=== PATIENT | female | born 1980 | race Caucasian/White ===

== ENCOUNTER 2018-05-21 13:37 | Emergency (ER) | payer OTHER ==
[2018-05-21 13:45] VITALS: BP 123/81; PULSE 84; RESP 20; TEMP 98.3
[2018-05-21] MEDS ORDERED: ERYTHROMYCIN 5 MG/GM OPHTH OINT 3.5 GM TUBE RIGHT EYE STA (14:18)
--- NOTE | 2018-05-21 14:26 | XR ---
EXAMINATION TYPE: XR foot complete RT DATE OF EXAM: 05/21/2018 COMPARISON: None HISTORY: Dropped box on foot TECHNIQUE: Three-view right foot FINDINGS: No acute fractures are evident. Soft tissues appear normal. Alignment is normal. Joint spac es are preserved. Follow-up exam can be performed 7-10 days from acute trauma for continued pain. IMPRESSION: 1. No acute osseous abnormality right foot.
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
== END 2018-05-21 15:10 | disposition home or self-care (01) ==
LOC: EC 13:37
DX: H00.013 Hordeolum externum right eye, unspecified eyelid (principal); S90.31XA Contusion of right foot, initial encounter; F17.200 Nicotine dependence, unspecified, uncomplicated; W20.8XXA Other cause of strike by thrown, projected or falling object, initial encounter; Y92.69 Other specified industrial and construction area as the place of occurrence of the external cause; Y99.0 Civilian activity done for income or pay
CPT/HCPCS: 99283

== ENCOUNTER 2019-04-02 12:07 | Emergency (ER) | payer OTHER ==
[2019-04-02 12:12] VITALS: BP 129/82; PULSE 81; RESP 16; TEMP 98.6
--- NOTE | 2019-04-02 12:55 | ED ---
Skin/Abscess/FB HPI - General Chief complaint: Skin/Abscess/Foreign Body Stated complaint: bump/bite on arm Time Seen by Provider: 04/02/19 12:14 Source: patient Mode of arrival: ambulatory Limitations: no limitations - History of Present Illness Initial comments: 8-year-old female presenting for chief complaint of bug bite right forearm. Patient states she had a byproduct a few nights prior. She states that she noticed the redness isn't spreading she was concerned of infection. Patient states it has been spent he is a draining. Patient is here chills night sweats general malaise. Patient denies any flulike symptoms. Patient denies history of MRSA. Remaining review of systems negative upon arrival patient appears well no signs of acute distress. Afebrile. No recent antibiotic use. - Related Data Home Medications Medication Instructions Recorded Confirmed Ibuprofen [Motrin Ib] 400 mg PO Q6H PRN 04/02/19 04/02/19 Previous Rx's Medication Instructions Recorded Cephalexin [Keflex] 500 mg PO Q6HR 7 Days #28 cap 04/02/19 Sulfamethox-Tmp 800-160Mg [Bactrim 1 tab PO Q12HR 7 Days #14 tab 04/02/19 DS 800-160 mg] Allergies Allergy/AdvReac Type Severity Reaction Status Date / Time No Known Allergies Allergy Verified 04/02/19 12:21 Review of Systems ROS Statement: Those systems with pertinent positive or pertinent negative responses have been documented in the HPI. ROS Other: All systems not noted in ROS Statement are negative. Past Medical History Past Medical History: No Reported History History of Any Multi-Drug Resistant Organisms: None Reported Past Surgical History: Section, Tubal Ligation Past Psychological History: No Psychological Hx Reported Smoking Status: Current every day smoker Past Alcohol Use History: None Reported Past Drug Use History: None Reported General Exam - General Exam Comments Initial Comments: General: The patient is awake and alert, in no distress, and does not appear acutely ill. Eye: Pupils are equal, round and reactive to light, extra-ocular movements are intact. No nystagmus. There is normal conjunctiva bilaterally. No signs of icterus. Cardiovascular: There is a regular rate and rhythm. No murmur, rub or gallop is appreciated. Respiratory: Lungs are clear to auscultation, respirations are non-labored, breath sounds are equal. No wheezes, stridor, rales, or rhonchi. Musculoskeletal: Normal ROM, no tenderness. Strength 5/5. Sensation intact. Pulses equal bilaterally 2+. Neurological: A&O x 3. CN II-XII intact, There are no obvious motor or sensory deficits. Coordination appears grossly intact. Speech is normal. Skin: Skin is warm and dry and no rashes. Break in skin with scab, mild surrounding erythema, fluctuance or drainage. Warm to palpation. Psychiatric: Cooperative, appropriate mood & affect, normal judgment. Limitations: no limitations Course Vital Signs 04/02/19 12:09 Temperature 98.6 F Pulse Rate 81 Respiratory 16 Rate Blood Pressure 129/82 O2 Sat by Pulse 98 Oximetry Medical Decision Making - Medical Decision Making 38yo female presents for bug bite. Patient consented infection. There is no evidence of fluctuant abscess. There is scab patient states it has been tasted drain. There is very mild surrounding cellulitis. Patient was started on Bactrim and Keflex. Return parameters were discussed at length patient was understanding. Patient is discharged. While with instruction to follow up outpatient and return parameters as discussed. Disposition Clinical Impression: Cellulitis of right forearm, Insect bite Disposition: HOME SELF-CARE Condition: Good Instructions (If sedation given, give patient instructions): Cellulitis (ED), Insect Bite or Sting (ED) Prescriptions: Sulfamethox-Tmp 800-160Mg [Bactrim DS 800-160 mg] 1 tab PO Q12HR 7 Days #14 tab Cephalexin [Keflex] 500 mg PO Q6HR 7 Days #28 cap Is patient prescribed a controlled substance at d/c from ED?: No Referrals: Abdias Kraft MD [Primary Care Provider] - 1-2 days Time of Disposition: 13:03
== END 2019-04-02 13:10 | disposition home or self-care (01) ==
LOC: EC 12:07
DX: S50.861A Insect bite (nonvenomous) of right forearm, initial encounter (principal); L03.113 Cellulitis of right upper limb; F17.200 Nicotine dependence, unspecified, uncomplicated; W57.XXXA Bitten or stung by nonvenomous insect and other nonvenomous arthropods, initial encounter
CPT/HCPCS: 99282

== ENCOUNTER 2019-04-28 16:46 | Emergency (ER) | payer OTHER ==
[2019-04-28 17:40] VITALS: BP 161/95; PULSE 62; RESP 18; TEMP 98.2
--- NOTE | 2019-04-28 18:32 | ED ---
General Adult HPI - General Chief complaint: Extremity Injury, Upper Stated complaint: shoulder pain Time Seen by Provider: 04/28/19 17:55 Source: patient, RN notes reviewed Mode of arrival: ambulatory Limitations: no limitations - History of Present Illness Initial comments: 39-year-old female without any significant past medical history presents to the emergency department for a chief complaint of work note. Patient states that she has chronic right shoulder pain from a previous rotator cuff tear. 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 States that she called into work today because of the pain and needs a note for work. States urine as well as her shoulder does not want any imaging or treatment done. States she only needs a work note.Patient has no other complaints at this time including shortness of breath, chest pain, abdominal pain, nausea or vomiting, headache, or visual changes. - Related Data Home Medications Medication Instructions Recorded Confirmed No Known Home Medications 04/28/19 04/28/19 Allergies Allergy/AdvReac Type Severity Reaction Status Date / Time No Known Allergies Allergy Verified 04/28/19 18:11 Review of Systems ROS Statement: Those systems with pertinent positive or pertinent negative responses have been documented in the HPI. ROS Other: All systems not noted in ROS Statement are negative. Past Medical History Past Medical History: No Reported History History of Any Multi-Drug Resistant Organisms: None Reported Past Surgical History: Section, Tubal Ligation Past Psychological History: No Psychological Hx Reported Smoking Status: Current every day smoker Past Alcohol Use History: None Reported Past Drug Use History: None Reported General Exam Limitations: no limitations General appearance: alert, in no apparent distress Head exam: Present: atraumatic, normocephalic, normal inspection Eye exam: Present: normal appearance, PERRL, EOMI. Absent: scleral icterus, conjunctival injection, periorbital swelling ENT exam: Present: normal exam, mucous membranes moist Neck exam: Present: normal inspection, full ROM. Absent: tenderness, meningismus, lymphadenopathy Respiratory exam: Present: normal lung sounds bilaterally. Absent: respiratory distress, wheezes, rales, rhonchi, stridor Cardiovascular Exam: Present: regular rate, normal rhythm, normal heart sounds. Absent: systolic murmur, diastolic murmur, rubs, gallop, clicks Extremities exam: Present: normal inspection, full ROM (Full range of motion of the right shoulder including full flexion and abduction and extension.), normal capillary refill (Capillary refill less than 2 seconds, radial pulse 2+.). Absent: tenderness (No tenderness of the right shoulder.), pedal edema, joint swelling (No edema or ecchymosis.), calf tenderness Course Vital Signs 04/28/19 17:38 Temperature 98.2 F Pulse Rate 62 Respiratory 18 Rate Blood Pressure 161/95 O2 Sat by Pulse 100 Oximetry Medical Decision Making - Medical Decision Making 39-year-old female presents for right shoulder pain. Patient has chronic right shoulder pain from an old rotator cuff tear injury. States that she aggravated it a couple days ago and today she called into work because of the pain and she did not want to exacerbate it by working. Denies fevers or chills. On exam patient is anxious to leave. States she just needs a work note. She has an unremarkable exam. Patient refuses x-ray despite my recommendation to obtain this. At this time patient requesting discharge. Patient will be discharged with a work note however she was given orthopedic referral to follow up with. She'll return if she has any worsening symptoms. Disposition Clinical Impression: Chronic shoulder pain Disposition: HOME SELF-CARE Condition: Good Instructions (If sedation given, give patient instructions): Shoulder Pain (ED) Additional Instructions: Please follow up with primary care and orthopedics in one to 2 days. Take Motrin and Tylenol for pain. Return here to the emergency department if you have any worsening symptoms. Is patient prescribed a controlled substance at d/c from ED?: No Referrals: Abdias Kraft MD [Primary Care Provider] - 1-2 days Al Woo MD [STAFF PHYSICIAN] - 1-2 days Time of Disposition: 18:31
== END 2019-04-28 18:32 | disposition home or self-care (01) ==
LOC: EC 16:46
DX: Z02.79 Encounter for issue of other medical certificate (principal); G89.29 Other chronic pain; M25.511 Pain in right shoulder; F17.200 Nicotine dependence, unspecified, uncomplicated; Z53.29 Procedure and treatment not carried out because of patient's decision for other reasons
CPT/HCPCS: 99283

== ENCOUNTER 2019-07-28 14:45 | Emergency (ER) | payer OTHER ==
[2019-07-28 14:49] VITALS: BP 124/84; PULSE 70; RESP 20; TEMP 99
[2019-07-28] MEDS ORDERED: DIPH,PERTUS(ACELL)TETVAC-LF 0.5 ML VIAL IM ONE (15:00)
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
[2019-07-28] MEDS ORDERED: CEPHALEXIN 500MG STARTER PACK 4 CAP BTL PO STA (15:36)
== END 2019-07-28 15:44 | disposition home or self-care (01) ==
LOC: EC 14:45
DX: S05.12XA Contusion of eyeball and orbital tissues, left eye, initial encounter (principal); S60.512A Abrasion of left hand, initial encounter; S60.511A Abrasion of right hand, initial encounter; F17.200 Nicotine dependence, unspecified, uncomplicated; Y04.0XXA Assault by unarmed brawl or fight, initial encounter; Y92.009 Unspecified place in unspecified non-institutional (private) residence as the place of occurrence of the external cause
CPT/HCPCS: 70450; 70486; 72125; 99284

== ENCOUNTER → 2020-04-05 | Outpatient (CLI) | payer OTHER ==
--- NOTE | 2020-04-06 06:56 | MR ---
EXAMINATION TYPE: MR shoulder LT wo con DATE OF EXAM: 04/05/2020 COMPARISON: Left shoulder x-ray March 09, 2020. HISTORY: Pain and loss of range of motion in Left shoulder. Post fall onto left side. TECHNIQUE: Multiplanar, multisequence imaging of the left shoulder is performed without contrast. FINDINGS: Rotator Cuff: Some increased signal distal aspect of the supraspinatus tendon near the humeral head a ttachment with some fraying of fibers. Infraspinatus tendon intact. Subscapularis tendon intact. With in the muscle bulk of the supraspinatus tendon along posterior aspect there is a well-defined ovoid s lightly lobulated lesion of T1 hypointensity and T2 hyperintensity measuring 3.3 x 0.8 cm coronal edgardo ge 14 x 0.9 cm AP diameter sagittal image 17 suspicious for small intramuscular hematoma given histor y of recent trauma. Rotator cuff muscle bulk is preserved. Acromioclavicular Joint: Some fluid at acromioclavicular joint with slight widening. No craniocaudal separation. No significant spurring. Underlying fat plane maintained. Distal acromion morphology unre markable. Glenohumeral Joint: No significant joint effusion or spurring. Labrum: The labrum appears grossly intact given limitation of non-arthrogram study. Biceps Tendon: The long head of biceps is in normal location within bicipital groove. Bone marrow signal: 4 mm T2 hyperintense lesion in the humeral head axial image 12 favors subchondral cyst. Other: No additional significant abnormality is appreciated. IMPRESSION: As above. Tendinosis/partial tearing of the distal supraspinatus tendon. Intramuscular le soheila short of mild tendinous junction suspicious for small hematoma. Consider short-term MRI follow-u p in 2-3 months time to document improvement and/or resolution to exclude other etiologies.
== END | disposition home or self-care (01) ==
LOC: RADMRIMAIN 10:05
PROVIDERS: ATTEND Orthopaedic Surgery
DX: M75.122 Complete rotator cuff tear or rupture of left shoulder, not specified as traumatic (principal)

== ENCOUNTER → 2020-04-30 | Outpatient (CLI) | payer OTHER ==
[2020-04-30 20:16] LABS: Ferritin 37.3 ng/mL (10.0-291.0)
[2020-04-30 20:20] LABS: % Iron Saturation 67.58 (12.00-45.00); ALT 12 U/L (8-44); AST 15 U/L (13-35); African American GFR (CKD) 108.4 (60.0-200.0); Albumin/Globulin Ratio 1.83 (1.60-3.17); Alkaline Phosphatase 55 U/L (41-126); C Reactive Protein <0.4 mg/dL (0.0-0.8); Calcium 9.3 mg/dL (8.7-10.3); Carbon Dioxide 24.8 mmol/L (21.6-31.8); Chloride 111 mmol/L (96-109); Globulin 2.3 g/dL (1.6-3.3); Glucose 97 mg/dL (70-110); Iron 198 ug/dL (50-170); Non-African American GFR(CKD) 93.5 (60.0-200.0); Potassium 4.2 mmol/L (3.5-5.5); Sodium 140 mmol/L (135-145); Total Bilirubin 0.6 mg/dL (0.3-1.2); Total Iron Binding Capacity 293 ug/dL (228-460); Total Protein 6.5 g/dL (6.2-8.2)
[2020-04-30 20:34] LABS: Hemoglobin A1C 5.3 % (4.0-6.0)
== END | disposition home or self-care (01) ==
LOC: LABWHC1 13:40
PROVIDERS: ATTEND Nurse Practitioner Family
DX: M25.511 Pain in right shoulder (principal); L65.9 Nonscarring hair loss, unspecified; N39.3 Stress incontinence (female) (male)
CPT/HCPCS: 36415; 80053; 82728; 83036; 83540; 83550; 84443; 85652; 86038; 86140

== ENCOUNTER → 2020-04-30 | Outpatient (CLI) | payer OTHER ==
[2020-04-30 14:21] LABS: Basophils % (A) 0 %; Eosinophils # (A) 0.1 k/uL (0-0.7); Eosinophils % (A) 1 %; HCT 43.8 % (34.0-46.0); HGB 14.1 gm/dL (11.4-16.0); Lymphocytes # (A) 2.6 k/uL (1.0-4.8); Lymphocytes % (A) 28 %; MCH 32.6 pg (25.0-35.0); MCHC 32.3 g/dL (31.0-37.0); MCV 101.1 fL (80.0-100.0); Mean Platelet Volume 8.1; Monocytes # (A) 0.6 k/uL (0-1.0); Monocytes % (A) 7 %; Neutrophils # (A) 5.8 k/uL (1.3-7.7); Neutrophils % (A) 62 %; Platelet Count 209 k/uL (150-450); RBC 4.33 m/uL (3.80-5.40); RDW 12.6 % (11.5-15.5); WBC 9.3 k/uL (3.8-10.6)
== END | disposition home or self-care (01) ==
LOC: LABPAT 13:35
PROVIDERS: ATTEND Orthopaedic Surgery
DX: Z01.818 Encounter for other preprocedural examination (principal); M75.42 Impingement syndrome of left shoulder
CPT/HCPCS: 85025

== ENCOUNTER 2020-05-05 06:27 | Day surgery (SDC) | payer OTHER ==
[2020-04-29 09:18] VITALS: BMI 25.3
--- NOTE | 2020-05-04 18:32 | HP ---
HISTORY AND PHYSICAL DATE OF SURGERY: 05/05/2020 Leonor Piedra is a 40-year-old patient seen with progressive left shoulder pain. We discussed options for treatment. She elected to proceed with arthroscopy. Consent was obtained. PAST MEDICAL HISTORY: Noncontributory. PAST SURGICAL HISTORY: section. DAILY MEDICATIONS: Ibuprofen, gabapentin. ALLERGIES: NONE. SOCIAL HISTORY: She smokes one pack of cigarettes daily. PHYSICAL EVALUATION OF THE LEFT SHOULDER: Flexion is 150 degrees. Abduction is 130 degrees. External rotation is 50 degrees with pain and weakness. Tenderness along the anterolateral acromion and rotator cuff insertion site. Impingement sign is positive at 90 degrees. Drop-arm sign is positive. Distal neurovascular exam is intact. RADIOGRAPHS: Radiographs of the left shoulder revealed a type 2 anterior acromion, cystic changes of the tuberosity. Left shoulder MRI revealed a partial rotator cuff tendon tear. IMPRESSION: 1. Left shoulder impingement with rotator cuff tear. 2. Tobacco use. PLAN: Left shoulder arthroscopy with subacromial decompression, arthroscopic rotator cuff repair, possible Prasad procedure and debridement. MMODL / IJN: [id number] /
[~2020-05-05 06:27] MED LIST: HYDROmorphone 0.5 MG/0.5 ML SYRINGE IVP PRN
[2020-05-05] MEDS ORDERED: ONDANSETRON 4 MG/2 ML VIAL ONE (06:58)
[2020-05-05] MEDS: LACTATED RINGERS 1,000 ML IV SCH ×2 (07:04→07:53)
[2020-05-05] MEDS ORDERED: DEXAMETHASONE SOD PHOSPHATE 10 MG/ML 1 ML VIAL IV ONE (07:05)
[2020-05-05] MEDS ORDERED: MIDAZOLAM 2 MG/2 ML VIAL IV ONE (07:15)
[2020-05-05] MEDS ORDERED: ROCURONIUM BROMIDE 10 MG/ML 5 ML VIAL IV ONE (07:56)
[2020-05-05] MEDS ORDERED: MIDAZOLAM 2 MG/2 ML VIAL ONE (07:56)
[2020-05-05] MEDS ORDERED: ROPIVACAINE 5 MG/ML 30 ML VIAL ONE (07:56)
[2020-05-05] MEDS ORDERED: LIDOCAINE 1% INJ 10MG/ML (20 ML MDV) ONE (07:56)
[2020-05-05] MEDS ORDERED: fentaNYL (PF) 50 MCG/ML 2 ML AMP ONE (07:56)
[2020-05-05] MEDS ORDERED: SUCCINYLCHOLINE CHLORIDE 100 MG/5 ML SYR IV ONE (07:56)
[2020-05-05] MEDS ORDERED: DEXAMETHASONE SOD PHOSPHATE 4 MG/ML 1 ML VIAL ONE (07:56)
[2020-05-05] MEDS ORDERED: PROPOFOL 10 MG/ML 20 ML VIAL IV ONE (07:56)
--- NOTE | 2020-05-05 08:23 | P.ANPRN ---
Procedure Note - Anesthesia - Nerve Block Performed Left Interscalene Time Out Performed: Yes (:14) Date of Procedure: 05/05/20 Procedure Start Time: Procedure Stop Time: Location of Patient: PreOp Indication: Acute Post-Operative Pain, Requested by Surgeon (Dr Gambino) Sedation Type: Sedate with meaningful contact maintained Preparation: Sterile Prep Position: Supine Catheter: None Needle Types: Pajunk (22g) Ultrasound used to visualize needle placement: Yes Ultrasound used to observe medication spread: Yes Injectate: 0.5% Ropivacaine (see comment for volume) (20cc + Decadron 4mg) Blood Aspirated: No Pain Paresthesia on Injection Noted: No Resistance on Injection: Normal Image Stored and Saved: Yes Events: Uneventful and Well Tolerated
[2020-05-05] MEDS ORDERED: HYDROmorphone 1 MG/ML 1 ML SYRINGE IVP ONE ×5 (09:18→10:14)
[2020-05-05] MEDS ORDERED: MIDAZOLAM 2 MG/2 ML VIAL IVP ONE ×2 (09:25→09:30)
[2020-05-05 09:28] VITALS: TEMP 97.3
[2020-05-05] MEDS ORDERED: ONDANSETRON 4 MG/2 ML VIAL IVP ONE (09:30)
--- NOTE | 2020-05-05 09:37 | P.OP ---
Date of Procedure: 05/05/20 Preoperative Diagnosis: Left shoulder impingement Postoperative Diagnosis: 1. Left shoulder rotator cuff tear 2. Left shoulder impingement Procedure(s) Performed: 1. Left shoulder arthroscopic rotator cuff repair 2. Left shoulder arthroscopic subacromial decompression Implants: 15.5 Arthrex swivel lock anchor Anesthesia: GETA, regional (Interscalene block) Surgeon: Jakub Gambino Provider Relations Consultant #1: Milton Harman Estimated Blood Loss (ml): 7 Pathology: none sent Condition: stable Disposition: PACU Indications for Procedure: 40-year-old patient seen with progressive left shoulder pain. After having treatment options discussed, she elected to proceed with arthroscopy. Operative Findings: See description of procedure Description of Procedure: Patient underwent an interscalene block by department of anesthesia. The patient was then taken to the operative suite. The patient underwent a general anesthetic by the department of anesthesia. The patient was placed into a lateral position and secured. There was appropriate padding of the bony prominence. Left shoulder was then prepped and draped in normal sterile orthopedic fashion. We placed the extremity in 10 pounds of longitudinal traction. A posterior incision was now made for a posterior working portal site. The trocar and cannula were inserted into the glenohumeral joint. Arthroscopy was initiated. Spinal needle was now inserted anteriorly, to ascertain the anterior working portal site. An incision was now made in that area, a trocar was inserted followed by a probe. The labrum was probed and found to be stable. There was an area of grade 1 chondromalacia central portion humeral head with no osteochondral tears present. The biceps tendon was stable. At this point instruments removed from glenohumeral joint. Utilizing the posterior working portal site, the trocar and cannula were inserted into the subacromial space. Arthroscopy initiated. I made an incision 2 fingerbreadths lateral to the acromion. I introduced my trocar followed by my ArthroCare ablator. I now began ablating thick subacromial bursal tissue, which exposed the undersurface of the anterior acromion. There was diminished subacromial space. There was a very prominent anterior acromion. A motorized bur was introduced and a subacromial decompression was performed. I also excised some osteophytes off the inferior aspect of the distal clavicle. The AC joint was visualized and noted to be stable with no significant arthritis. I now turned my attention to the rotator cuff tendon. There was obvious full-t hickness perforation along the central portion distal supraspinatus. I debrided the margins getting down to stable tendon tissue. I abraded the footprint with a motorized bur. With the assistance of Edmundo LORENZO I passed 3 everted mattress sutures through good bites of rotator cuff tendon. I now punched a hole in the area of our footprint for insertion of an anchor. All 6 limbs of suture were now passed and the eyelet of a 5.5 Arthrex swivel lock anchor. I now placed the eyelet in the pre-punch hole and held in position while Edmundo LORENZO tension the sutures and deployed the anchor. We had good fixation. All residual suture limbs were now clipped. We had good compression of the tendon along the entire footprint. I injected 1 mL Renyte intra-articular. Instruments now removed from the portal sites. All portal sites were approximated with nylon suture. Sterile dressings were applied followed by a shoulder sling. Milton LORENZO assisted in this complex case. The patient was awakened, transferred to a bed, and taken to recovery in stable condition.
[2020-05-05] MEDS ORDERED: fentaNYL (PF) 50 MCG/ML 2 ML AMP IVP ONE ×2 (09:38→09:41)
[2020-05-05 11:29] VITALS: BP 133/92; PULSE 68; RESP 18
== END 2020-05-05 11:33 | disposition home or self-care (01) ==
LOC: OR 06:27
PROVIDERS: ATTEND Orthopaedic Surgery
DX: M75.122 Complete rotator cuff tear or rupture of left shoulder, not specified as traumatic (principal); M25.812 Other specified joint disorders, left shoulder; M94.212 Chondromalacia, left shoulder; M25.712 Osteophyte, left shoulder; F17.210 Nicotine dependence, cigarettes, uncomplicated; Z98.890 Other specified postprocedural states; Z79.1 Long term (current) use of non-steroidal anti-inflammatories (NSAID); Z79.899 Other long term (current) drug therapy
CPT/HCPCS: 64415; 81025; 76942; 29827; 29826; C1713; Q4212; J2250; J1100 ×2; J2405; J0690; J2001; J3010; J1170; J2795; J0330; J2704

== ENCOUNTER 2020-06-27 02:46 | Emergency (ER) | payer OTHER ==
--- NOTE | 2020-06-27 02:55 | ED ---
Psych HPI - General Chief Complaint: Psychiatric Symptoms Stated Complaint: Mental health Time Seen by Provider: 06/27/20 02:55 Source: patient, police Mode of arrival: ambulatory - History of Present Illness Initial Comments: Leonor is a 40-year-old female with no psychiatric history is brought to the ER today in police custody for making suicidal statements. Upon arrival the patient is very tearful and apologetic. She states that she got in a verbal altercation with her girlfriend and became very agitated. She made multiple superficial lacerations to her left forearm, none were deep, none over any vascular structures. She states she did it to upset her girlfriend who was ignoring her. Patient states that she has been evaluated by psychiatry in the past she's been in counseling in the past that she was previously incarcerated. She's never been on any psychiatric medications she's never been an inpatient psychiatric facility. She denies any suicidal thoughts or plans. Denies being homicidal thoughts or plans. Does not know when her tetanus was last updated. Is not on any anticoagulant or antiplatelet medications. - Related Data Home Medications Medication Instructions Recorded Confirmed Bladder Medicine(Unknown Name) 1 tab PO DAILY 04/29/20 05/05/20 Gabapentin 800 mg PO TID 04/29/20 05/05/20 Ibuprofen [Motrin] 800 mg PO Q4-6H PRN 04/29/20 05/05/20 Vitamin D 1 tab PO Q30D 04/29/20 05/05/20 Previous Rx's Medication Instructions Recorded HYDROcodone/APAP 7.5-325MG [[place] 1 each PO Q6HR PRN #28 tab 05/05/20 7.5] Allergies Allergy/AdvReac Type Severity Reaction Status Date / Time No Known Allergies Allergy Verified 06/27/20 02:54 Review of Systems ROS Statement: Those systems with pertinent positive or pertinent negative responses have been documented in the HPI. ROS Other: All systems not noted in ROS Statement are negative. Past Medical History Past Medical History: Osteoarthritis (OA) History of Any Multi-Drug Resistant Organisms: MRSA Date of last positivie culture/infection: 2018 MDRO Source:: arm Past Surgical History: Section, Orthopedic Surgery, Tubal Ligation Additional Past Surgical History / Comment(s): left shoulder Past Anesthesia/Blood Transfusion Reactions: No Reported Reaction Past Psychological History: Anxiety Smoking Status: Current every day smoker Past Alcohol Use History: None Reported Past Drug Use History: Marijuana - Past Family History Mother Family Medical History: No Reported History General Exam - General Exam Comments Initial Comments: Physical Exam GENERAL: Patient is well-developed and well-nourished. Crying and upset HENT: Normocephalic, Atraumatic. EYES: PERRL, EOMI PULMONARY: Unlabored respirations. CARDIOVASCULAR: RRR Warm and well perfused extremities ABDOMEN: Non-distended SKIN: Multiple linear superficial lacerations to the left anterior forearm, consistent with self-inflicted injury, significant contusion around the superficial lacerations as noted indicating the instrument used was quite dull and required significant pressure 1 laceration measuring 3 cm is through the dermis with visible underlying subcutaneous fat. No tendon or vascular involvement : Deferred NEUROLOGIC: Alert and oriented Normal speech Normal gait MUSCULOSKELETAL: Moving all extremities with no apparent injury PSYCHIATRIC: Upset, apologetic denies suicidal or homicidal ideation Limitations: no limitations Course Vital Signs 06/27/20 02:47 Temperature 99.1 F Pulse Rate 106 H Respiratory 20 Rate Blood Pressure 167/119 O2 Sat by Pulse 97 Oximetry Procedures - Laceration Laceration #1 Consent Obtained: verbal consent Indication: laceration Site: upper extremity Size (cm): 3 Description: linear Depth: simple, single layer Pre-repair: wound explored, irrigated extensively Type of Sutures: other (skin glue) Patient Tolerated Procedure: well, no complications Medical Decision Making - Medical Decision Making The patient was seen and evaluated, history is obtained from the patient and police Patient was very upset made multiple superficial lacerations to the left anterior forearm, none over the distal wrist none are deep not involve any vascular injury Patient is very apologetic she admits that this was an attention seeking behavior, denies any suicidal plan or ideation no history of suicidal attempts, no significant psychiatric history Patient is medically cleared for evaluation by psychiatry Patient was evaluated by emergency psychiatric services nurse who agrees at this time the patient is stable for discharge home this was an acute stress reaction. Patient is able to contract to safety. Laceration was repaired with skin glue and Steri-Strips. Patient tolerated this well. Patient was discharged home in stable condition. We did offer to pay for a cab ride home for the patient she states that it's only about 5 minute walk and she would like to stop at a liquor store to buy cigarettes or she would prefer to be discharged to walk home. Disposition Clinical Impression: Adjustment reaction of adult life Disposition: HOME SELF-CARE Condition: Stable Additional Instructions: Keep her skin clean and dry, you can days and wash her hands but don't take any baths or go swimming. The glue will follow off in time. You will have a scar Stick to your safety plan You were provided with resources for follow-up for counseling and psychiatric care, I recommend you contact these on Sunday for therapy. If you have any thoughts of hurting herself or others call 911 or return to the emergency department immediately Is patient prescribed a controlled substance at d/c from ED?: No Referrals: Halle Cancino MD [Primary Care Provider] - 1-2 days
[2020-06-27] MEDS ORDERED: DIPH,PERTUS(ACELL)TETVAC-LF 0.5 ML VIAL IM ONE (03:10)
[2020-06-27] MEDS ORDERED: TOPICAL SKIN ADHESIVE 1 EACH AMP TOPICAL ONE (03:10)
[2020-06-27] MEDS ORDERED: NICOTINE 21MG/24HR PATCH TRANSDERM STA (03:24)
[2020-06-27] MEDS ORDERED: IBUPROFEN 600 MG STARTER PACK 4 TAB BTL PO STA (05:10)
[2020-06-27 05:18] VITALS: BP 112/70; PULSE 81; RESP 18; TEMP 98.7
== END 2020-06-27 05:18 | disposition home or self-care (01) ==
LOC: EC 02:46
DX: F43.20 Adjustment disorder, unspecified (principal); S51.812A Laceration without foreign body of left forearm, initial encounter; M19.90 Unspecified osteoarthritis, unspecified site; F17.200 Nicotine dependence, unspecified, uncomplicated; Z23 Encounter for immunization; Z86.14 Personal history of Methicillin resistant Staphylococcus aureus infection; X83.8XXA Intentional self-harm by other specified means, initial encounter
CPT/HCPCS: 82075; 90715; 99285; 90471; 12002; S4990

== ENCOUNTER 2021-07-21 17:32 | Emergency (ER) | payer OTHER ==
[2021-07-21 18:03] VITALS: RESP 18
[2021-07-21] MEDS ORDERED: KETOROLAC 15 MG/ML 1 ML VIAL IM STA (20:05)
[2021-07-21] MEDS ORDERED: MORPHINE SULFATE 4 MG/ML SYRINGE IM STA (20:05)
--- NOTE | 2021-07-21 20:26 | ED ---
General Adult HPI - General Chief complaint: Extremity Injury, Upper Stated complaint: [facility] Shoulder injury Time Seen by Provider: 07/21/21 20:00 Source: patient Mode of arrival: ambulatory Limitations: no limitations - History of Present Illness Initial comments: 41 year-old female patient presents for evaluation of left shoulder pain and left low back pain that started while moving a metal shelf at work. States that the shelf was quite heavy, she pulled it with her left arm, and felt a pop and pain in her left shoulder. Reports tingling as well to the left arm. States that she feels a popping in her shoulder whenever she moves it. Does have history of rotator cuff repair on the left. She states she also felt onset of pain to the left low back with radiation of pain down the back of the left thigh. States the left thigh is tingly. Denies loss of bowel or bladder control. Denies saddle anesthesia. Has not taken anything for pain. Denies chance of . - Related Data Home Medications Medication Instructions Recorded Confirmed Bladder Medicine(Unknown Name) 1 tab PO DAILY 04/29/20 05/05/20 Gabapentin 800 mg PO TID 04/29/20 05/05/20 Ibuprofen [Motrin] 800 mg PO Q4-6H PRN 04/29/20 05/05/20 Vitamin D 1 tab PO Q30D 04/29/20 05/05/20 Previous Rx's Medication Instructions Recorded HYDROcodone/APAP 7.5-325MG [[place] 1 each PO Q6HR PRN #28 tab 05/05/20 7.5] Ibuprofen [Motrin] 600 mg PO Q8HR PRN #30 tab 07/21/21 Allergies Allergy/AdvReac Type Severity Reaction Status Date / Time No Known Allergies Allergy Verified 07/21/21 18:03 Review of Systems ROS Statement: Those systems with pertinent positive or pertinent negative responses have been documented in the HPI. ROS Other: All systems not noted in ROS Statement are negative. Past Medical History Past Medical History: Osteoarthritis (OA) History of Any Multi-Drug Resistant Organisms: MRSA Date of last positivie culture/infection: 2019 MDRO Source:: arm Past Surgical History: Section, Orthopedic Surgery, Tubal Ligation Additional Past Surgical History / Comment(s): left shoulder Past Anesthesia/Blood Transfusion Reactions: No Reported Reaction Past Psychological History: Anxiety Smoking Status: Current every day smoker Past Alcohol Use History: None Reported Past Drug Use History: Marijuana - Past Family History Mother Family Medical History: No Reported History General Exam Limitations: no limitations General appearance: alert, in no apparent distress, other (This is a well- developed, well-nourished adult female patient in mild distress related to pain.) Respiratory exam: Present: normal lung sounds bilaterally. Absent: respiratory distress, wheezes, rales, rhonchi, stridor Cardiovascular Exam: Present: regular rate, normal rhythm, normal heart sounds. Absent: systolic murmur, diastolic murmur, rubs, gallop, clicks GI/Abdominal exam: Present: soft, normal bowel sounds. Absent: distended, tenderness, guarding, rebound, rigid Extremities exam: Present: normal inspection, full ROM, tenderness (Left shoulder over the AC joint. ), normal capillary refill, other (Skin to the left arm and left leg is pink, warm, dry. Cap refill less than 3 seconds. Radial pulses 2+. Pedal and posttibial pulses 2+.). Absent: pedal edema, joint swelling, calf tenderness Neurological exam: Present: alert, oriented X3, CN II-XII intact Psychiatric exam: Present: normal affect, normal mood Skin exam: Present: warm, dry, intact, normal color. Absent: rash Course Vital Signs 07/21/21 07/21/21 18:01 22:01 Temperature 99.0 F 98.7 F Pulse Rate 114 H 87 Respiratory 18 18 Rate Blood Pressure 136/88 145/78 O2 Sat by Pulse 96 98 Oximetry Medical Decision Making - Medical Decision Making 41-year-old female patient presented to the emergency department today for evaluation of left shoulder pain and left lower back pain after moving a shelf at work. Physical examination did reveal tenderness over the left shoulder. Neurovascular status was intact. X-rays were obtained and did show , no clavicular joint widening. We did discuss possibility of an acromioclavicular joint separation. She will be discharged with a sling with strict instructions to perform gentle range of motion. She is instructed to follow-up with orthopedics for further evaluation as soon as possible. Return parameters were discussed in detail. She verbalizes understanding and agrees with this plan. My attending is Dr. Rowell. - Radiology Data Radiology results: report reviewed, image reviewed 3 views of left shoulder obtained. Report was reviewed in its entirety. Impression by Dr. Danya Carrillo shows no acute process other his before meals joint widening measuring 1.2 cm transverse. 5 views of lumbosacral spine are obtained. Report was reviewed in its entirety. Impression by Dr. Danya Carrillo shows no acute process. Disposition Clinical Impression: Separation of left acromioclavicular joint Disposition: HOME SELF-CARE Condition: Good Instructions (If sedation given, give patient instructions): Acromioclavicular Separation (ED) Additional Instructions: Wear the sling for comfort. Perform gentle range of motion exercises to the left shoulder several times per day to prevent frozen shoulder. Follow-up with telecommunications specialist for further evaluation as soon as possible. Return for any new, worsening, or concerning symptoms. Prescriptions: Ibuprofen [Motrin] 600 mg PO Q8HR PRN #30 tab PRN Reason: Pain Is patient prescribed a controlled substance at d/c from ED?: No Referrals: Halle Cancino MD [Primary Care Provider] - 1-2 days Time of Disposition: 21:40
--- NOTE | 2021-07-21 21:21 | XR ---
PROCEDURE: XR shoulder complete LT - 3V DATE AND TIME: 07/21/2021 8:59 PM CLINICAL INDICATION: PHH; Pain/injury TECHNIQUE: Department protocol COMPARISON: None FINDINGS: There is no fracture or malalignment. There is AC joint widening, measuring 1.2 cm transver se, noted. The soft tissues are unremarkable. IMPRESSION: No acute process.
--- NOTE | 2021-07-21 21:23 | XR ---
PROCEDURE: XR LUMBOSACRAL SPINE 5 VIEWS DATE AND TIME: 07/21/2021 8:59 PM CLINICAL INDICATION: PHH; Pain/injury TECHNIQUE: Department protocol COMPARISON: None FINDINGS: There is no fracture or malalignment. The soft tissues are unremarkable. IMPRESSION: NO ACUTE PROCESS.
[2021-07-21] MEDS ORDERED: ACET/COD 300 MG/30 MG STARTER PACK 6 TAB BTL PO STA (21:40)
[2021-07-21 22:04] VITALS: BP 145/78; PULSE 87; TEMP 98.7
== END 2021-07-21 22:04 | disposition home or self-care (01) ==
LOC: EC 17:32
DX: S43.102A Unspecified dislocation of left acromioclavicular joint, initial encounter (principal); M19.90 Unspecified osteoarthritis, unspecified site; M54.50 Low back pain, unspecified; F17.200 Nicotine dependence, unspecified, uncomplicated; F12.90 Cannabis use, unspecified, uncomplicated; Z79.1 Long term (current) use of non-steroidal anti-inflammatories (NSAID); Z79.899 Other long term (current) drug therapy; X50.1XXA Overexertion from prolonged static or awkward postures, initial encounter
CPT/HCPCS: 96372 ×3; 99283 ×2; 72110; 73030; J2270; J1885

== ENCOUNTER 2021-07-26 19:59 | Emergency (ER) | payer OTHER ==
[2021-07-26] MEDS ORDERED: HYDROmorphone 1 MG/ML 1 ML SYRINGE IM STA (22:13)
[2021-07-26] MEDS ORDERED: traMADol 50 MG STARTER PACK 3 TAB BTL PO STA (22:14)
--- NOTE | 2021-07-26 22:18 | ED ---
Recheck HPI - General Chief Complaint: Extremity Injury, Upper Stated Complaint: LT Arm pain Time Seen by Provider: 07/26/21 21:56 Source: patient, RN notes reviewed, old records reviewed Mode of arrival: ambulatory Limitations: no limitations - History of Present Illness Initial Comments: This is a 41-year-old female to the ER today for evaluation. She presents today for evaluation in regards to persistent left shoulder pain after a fall with an before meals separation per the patient. She states she cannot go back to work on the work is required to come back. Patient states pain is not controlled. No other complaints MD Complaint: medication refill request -: days(s) Returns Today for: persistent/worsening pain related to initial visit Symptoms Since Prior Visit: worsening pain Context: ran out of medication Treatments Prior to Arrival: Given Pain Meds on - Related Data Home Medications Medication Instructions Recorded Confirmed Bladder Medicine(Unknown Name) 1 tab PO DAILY 04/29/20 05/05/20 Gabapentin 800 mg PO TID 04/29/20 05/05/20 Ibuprofen [Motrin] 800 mg PO Q4-6H PRN 04/29/20 05/05/20 Vitamin D 1 tab PO Q30D 04/29/20 05/05/20 Previous Rx's Medication Instructions Recorded HYDROcodone/APAP 7.5-325MG [[place] 1 each PO Q6HR PRN #28 tab 05/05/20 7.5] Ibuprofen [Motrin] 600 mg PO Q8HR PRN #30 tab 07/21/21 Ketorolac [Toradol] 10 mg PO Q6HR #20 tab 07/26/21 Allergies Allergy/AdvReac Type Severity Reaction Status Date / Time No Known Allergies Allergy Verified 07/21/21 18:03 Review of Systems ROS Statement: Those systems with pertinent positive or pertinent negative responses have been documented in the HPI. ROS Other: All systems not noted in ROS Statement are negative. Past Medical History Past Medical History: Osteoarthritis (OA) History of Any Multi-Drug Resistant Organisms: MRSA Date of last positivie culture/infection: 2019 MDRO Source:: arm Past Surgical History: Section, Orthopedic Surgery, Tubal Ligation Additional Past Surgical History / Comment(s): left shoulder Past Anesthesia/Blood Transfusion Reactions: No Reported Reaction Past Psychological History: Anxiety Smoking Status: Current every day smoker Past Alcohol Use History: None Reported Past Drug Use History: Marijuana - Past Family History Mother Family Medical History: No Reported History General Exam Limitations: no limitations General appearance: alert, in no apparent distress Head exam: Present: atraumatic, normocephalic, normal inspection Eye exam: Present: normal appearance, PERRL, EOMI. Absent: scleral icterus, conjunctival injection, periorbital swelling ENT exam: Present: normal exam, mucous membranes moist Neck exam: Present: normal inspection. Absent: tenderness, meningismus, lymphadenopathy Respiratory exam: Present: normal lung sounds bilaterally. Absent: respiratory distress, wheezes, rales, rhonchi, stridor Cardiovascular Exam: Present: regular rate, normal rhythm, normal heart sounds. Absent: systolic murmur, diastolic murmur, rubs, gallop, clicks GI/Abdominal exam: Present: soft, normal bowel sounds. Absent: distended, tenderness, guarding, rebound, rigid Extremities exam: Present: normal inspection, full ROM, normal capillary refill. Absent: tenderness, pedal edema, joint swelling, calf tenderness Back exam: Present: normal inspection Neurological exam: Present: alert, oriented X3, CN II-XII intact Psychiatric exam: Present: normal affect, normal mood Skin exam: Present: warm, dry, intact, normal color. Absent: rash Course Vital Signs 07/26/21 07/26/21 20:15 22:49 Temperature 97.7 F 97.9 F Pulse Rate 74 60 Respiratory 19 18 Rate Blood Pressure 140/94 138/89 O2 Sat by Pulse 99 98 Oximetry - Reevaluation(s) Reevaluation #1: Medical record is reviewed Symptoms are improved here in the emergency department Patient is informed of results and questions answered Medical Decision Making - Medical Decision Making 41 female for recheck of left shoulder pain with left before meals separation. Patient given pain control and Tylenol for can can be discharged home Disposition Clinical Impression: Separation of left acromioclavicular joint Disposition: HOME SELF-CARE Condition: Good Instructions (If sedation given, give patient instructions): Shoulder Pain (ED) Prescriptions: Ketorolac [Toradol] 10 mg PO Q6HR #20 tab Is patient prescribed a controlled substance at d/c from ED?: No Referrals: Halle Cancino MD [Primary Care Provider] - 1-2 days
[2021-07-26] MEDS ORDERED: ETODOLAC 400 MG TAB PO ONE (22:30)
[2021-07-26] MEDS ORDERED: BACITRACIN OINT 1 EACH PACKET TOPICAL ONE (22:44)
[2021-07-26 22:53] VITALS: BP 138/89; PULSE 60; RESP 18; TEMP 97.9
== END 2021-07-26 22:57 | disposition home or self-care (01) ==
LOC: EC 19:59
DX: S43.102A Unspecified dislocation of left acromioclavicular joint, initial encounter (principal); M19.90 Unspecified osteoarthritis, unspecified site; F41.9 Anxiety disorder, unspecified; F17.200 Nicotine dependence, unspecified, uncomplicated; F12.90 Cannabis use, unspecified, uncomplicated; Z98.51 Tubal ligation status; X58.XXXA Exposure to other specified factors, initial encounter
CPT/HCPCS: 99283; 96372; J1170

== ENCOUNTER → 2021-09-12 | Outpatient (CLI) | payer OTHER ==
--- NOTE | 2021-09-13 04:22 | MR ---
EXAMINATION TYPE: MR shoulder LT wo con DATE OF EXAM: 09/12/2021 COMPARISON: 04/05/2020 HISTORY: Prior on syanpse, left shoulder pain Multiplanar multiecho imaging of the left shoulder without contrast. There is linear defect in the greater tuberosity humerus related to reconstructive surgery. There is some fluid in the subacromial joint space. There is increased signal at the AC joint and the joint sp shelly. There are small defects in the supraspinatus tendon which appear full thickness. There is no ret raction. The biceps tendon is intact. Subscapularis tendon appears normal. The glenoid joleen appear normal. Th ere is no evidence of a fracture. IMPRESSION: Previous surgery. There is improvement in the subacromial impingement with postsurgical changes at th e acromion compared to old exam. There is a small full-thickness tears of the supraspinatus tendon ne ar the attachment on the greater tuberosity. No retraction. Mild sub acromial effusion. Fluid increas ed compared to preoperative exam. There is clearing of the fluid in the supraspinatus muscle compared to the old exam.
== END | disposition home or self-care (01) ==
LOC: RADMRIMAIN 19:14
PROVIDERS: ATTEND Orthopaedic Surgery
DX: M75.112 Incomplete rotator cuff tear or rupture of left shoulder, not specified as traumatic (principal)

== ENCOUNTER 2021-10-20 07:49 | Day surgery (SDC) | payer OTHER ==
[2021-10-18 14:05] VITALS: BMI 25.7
--- NOTE | 2021-10-19 15:19 | HP ---
HISTORY AND PHYSICAL DATE OF SURGERY: 10/20/2021 Leonor Piedra is a 41-year-old patient seen with left shoulder pain. We discussed options for treatment. She elected to proceed with left shoulder arthroscopy. Consent obtained. PAST MEDICAL HISTORY: Noncontributory. SURGICAL HISTORY: Left shoulder arthroscopy, section. DAILY MEDICATIONS: BuSpar, gabapentin, ibuprofen. ALLERGIES: NONE. SOCIAL HISTORY: She smokes cigarettes. PHYSICAL EVALUATION OF THE LEFT SHOULDER: Flexion is 120 degrees. Abduction is 90 degrees. External rotation is 40 degrees with weakness. There is tenderness along the anterolateral acromion and rotator cuff insertion site. Impingement is positive at 90 degrees. Cross-body adduction sign is positive. Drop-arm sign is positive. Distal neurovascular exam is intact. Radiographs of the left shoulder failed to reveal any acute osseous abnormality. Left shoulder MRI revealed a supraspinatus tendon tear. IMPRESSION: Left shoulder impingement with rotator cuff tear. PLAN: Left shoulder arthroscopy with decompression, arthroscopic rotator cuff repair and debridement. MMODL / IJN: [id number] /
[2021-10-20] MEDS ORDERED: MIDAZOLAM 2 MG/2 ML VIAL IV PRN (08:10)
[2021-10-20] MEDS ORDERED: LACTATED RINGERS 1,000 ML IV SCH (08:10)
[2021-10-20] MEDS ORDERED: HYDROmorphone 0.5 MG/0.5 ML SYRINGE IVP PRN (08:10)
[2021-10-20] MEDS ORDERED: ONDANSETRON 4 MG/2 ML VIAL IVP ONE (08:10)
[2021-10-20] MEDS ORDERED: DEXAMETHASONE SOD PHOSPHATE 4 MG/ML 1 ML VIAL IV ONE (08:10)
[2021-10-20 08:30] VITALS: TEMP 98.4
[2021-10-20] MEDS ORDERED: LIDOCAINE 1% (10MG/ML) FOR IV START INTRADERMA ONE (08:40)
[2021-10-20] MEDS ORDERED: MIDAZOLAM 2 MG/2 ML VIAL IV ONE ×2 (09:12→09:22)
[2021-10-20] MEDS ORDERED: fentaNYL (PF) 50 MCG/ML 2 ML AMP IV ONE (09:20)
[2021-10-20] MEDS ORDERED: PHENYLEPHRINE-0.9% NACL SYG 1,000 MCG/10 ML SYRINGE ONE (09:25)
[2021-10-20] MEDS ORDERED: LIDOCAINE 1% INJ 10MG/ML (20 ML MDV) ONE (09:25)
[2021-10-20] MEDS ORDERED: MIDAZOLAM 2 MG/2 ML VIAL ONE (09:25)
[2021-10-20] MEDS ORDERED: DEXAMETHASONE SOD PHOSPHATE 4 MG/ML 1 ML VIAL ONE (09:25)
[2021-10-20] MEDS ORDERED: SUCCINYLCHOLINE CHLORIDE 100 MG/5 ML SYR IV ONE (09:25)
[2021-10-20] MEDS ORDERED: PROPOFOL 10 MG/ML 20 ML VIAL IV ONE (09:25)
[2021-10-20] MEDS ORDERED: fentaNYL (PF) 50 MCG/ML 2 ML AMP ONE (09:25)
[2021-10-20] MEDS ORDERED: ROPIVACAINE 5 MG/ML 30 ML VIAL ONE (09:25)
--- NOTE | 2021-10-20 10:44 | P.OP ---
Date of Procedure: 10/20/21 Preoperative Diagnosis: Left shoulder rotator cuff tear Postoperative Diagnosis: Left shoulder rotator cuff tear Procedure(s) Performed: Arthroscopic rotator cuff repair left shoulder Implants: 15.5 Arthrex a lock anchor Anesthesia: GETA regional (Interscalene block) Surgeon: Jakub Gambino Motion Study Engineer #1: Milton Harman Estimated Blood Loss (ml): 11 Pathology: none sent Condition: stable Disposition: PACU Indications for Procedure: 41-year-old patient was seen with a left shoulder symptomatic rotator cuff tear. I discussed options for treatment. She elected to proceed with arthroscopic repair. Consent was obtained. Operative Findings: see description of procedure Description of Procedure: Patient underwent an interscalene block by department of anesthesia. The patient was then taken to the operative suite. The patient underwent a general anesthetic by the department of anesthesia. The patient was placed into a lateral position and secured. There was appropriate padding of the bony prominence. Left shoulder was then prepped and draped in normal sterile orthopedic fashion. We placed the extremity in 10 pounds of longitudinal traction. A posterior incision was now made for a posterior working portal site. The trocar and cannula were inserted into the glenohumeral joint. Arthroscopy was initiated. Spinal needle was now inserted anteriorly, to ascertain the anterior working portal site. An incision was now made in that area, a trocar was inserted followed by a probe. There was no significant chondromalacia present. The biceps appeared stable. The labrum appeared stable. Instruments were now removed from glenohumeral joint. Utilizing the posterior working portal site, the trocar and cannula were inserted into the subacromial space. Arthroscopy initiated. I made an incision 2 fingerbreadths lateral to the acromion. I introduced my trocar followed by my ArthroCare ablator. I now began ablating thick subacromial bursal tissue, which exposed the undersurface of the anterior acromion. There was adequate subacromial space present. There was a previous Prasad procedure which appeared stable. I now turned my attention to the rotator cuff tendon. There was some residual suture material consistent with her previous repair. This was removed without difficulty. There was a tear along the distal supraspinatus along with an intrasubstance tear. The tissue appeared fairly thin. I debrided the margins getting down to stable tendon tissue. I abraded the footprint with a motorized bur. I now repaired the intrasubstance tear with 2 simple interrupted sutures closing down that tear repairing nicely. I now with the assistance of Edmundo LORENZO past 3 everted mattress sutures through good bites of rotator cuff tendon. I now punched the hole in the footprint area for insertion of an anchor. All 6 limbs of suture were passed through the eyelet of a 5.5 Arthrex swivel lock anchor. I placed the eyelet into the prepunched hole and held in position while Edmundo LORENZO tension all 6 suture limbs and deployed the anchor was good fixation noted. All residual suture limbs were now clipped. We had good compression of the tendon along the entire footprint. Instruments now removed from the portal sites. All portal sites were approximated with nylon suture. Sterile dressings were applied followed by a shoulder sling. Milton LORENZO assisted in this case. The patient was awakened, transferred to a bed, and taken to recovery in stable condition.
[2021-10-20 11:05] VITALS: RESP 16
[2021-10-20] MEDS ORDERED: HYDROmorphone 1 MG/ML 1 ML SYRINGE IVP ONE (11:36)
[2021-10-20] MEDS ORDERED: KETOROLAC 30 MG/ML 1 ML VIAL IVP STA (12:06)
[2021-10-20 12:43] VITALS: BP 115/70; PULSE 87
--- NOTE | 2021-10-20 21:01 | P.ANPRN ---
Procedure Note - Anesthesia - Nerve Block Performed Left Interscalene Single Time Out Performed: Yes Date of Procedure: 10/20/21 Procedure Start Time: : Procedure Stop Time: Location of Patient: PreOp Indication: Acute Post-Operative Pain, Requested by Surgeon Sedation Type: Sedate with meaningful contact maintained Preparation: Sterile Prep Position: Supine Needle Types: Pajunk Needle Gauge: 21 Ultrasound used to visualize needle placement: Yes Ultrasound used to observe medication spread: Yes Blood Aspirated: No Pain Paresthesia on Injection Noted: No Resistance on Injection: Normal Image Stored and Saved: Yes Events: Uneventful and Well Tolerated (ropi .5% 20cc plus dexamethasone 4mg)
== END 2021-10-20 13:25 | disposition home or self-care (01) ==
LOC: OR 07:49
PROVIDERS: ATTEND Orthopaedic Surgery
DX: M75.42 Impingement syndrome of left shoulder (principal); M75.102 Unspecified rotator cuff tear or rupture of left shoulder, not specified as traumatic; Z98.891 History of uterine scar from previous surgery; F17.210 Nicotine dependence, cigarettes, uncomplicated; Z98.890 Other specified postprocedural states; Z98.51 Tubal ligation status; Z79.1 Long term (current) use of non-steroidal anti-inflammatories (NSAID); Z79.899 Other long term (current) drug therapy; Z79.891 Long term (current) use of opiate analgesic
CPT/HCPCS: 29826; 29827; 64415; 76942; C1713; J2250; J1100; J2405; J0690; J2001; J3010; J1170; J2795; J2370; J0330; J2704

== ENCOUNTER → 2021-11-14 | Day surgery (SDC) | payer OTHER ==
--- NOTE | 2021-11-13 14:09 | HP ---
HISTORY AND PHYSICAL DATE OF SURGERY: 11/14/2021 Leonor Piedra is a 41-year-old patient who underwent left shoulder arthroscopic rotator cuff repair on 10/20/2021. She was found postoperatively to have an infection and underwent left shoulder arthroscopic lavage and debridement on 11/03/2021, at which time she was found to have a large recurrent rotator cuff tendon tear. At that time her residual sutures were removed and we are currently treating her for her active infection. She was seen in the office with some persistent infection of the lateral portal site. We discussed incision with irrigation and debridement of that. She was agreeable. Consent was obtained. PAST MEDICAL HISTORY: Depression. PAST SURGICAL HISTORY: Shoulder arthroscopy and section. DAILY MEDICATIONS: BuSpar, gabapentin, ibuprofen. ALLERGIES: NONE. SOCIAL HISTORY: She smokes cigarettes. PHYSICAL EVALUATION OF THE LEFT SHOULDER: She has some erythema and drainage along the lateral portal site. The anterior and posterior portal sites are healed. Range of motion was limited. Her distal neurovascular exam is intact. Radiographs of the left shoulder revealed a stable-appearing flat anterior acromion. IMPRESSION: 1. Left shoulder lateral portal site infection. 2. History of left shoulder arthroscopy with removal of retained suture material. 3. History of previous left shoulder arthroscopic rotator cuff repair. PLAN: Irrigation and debridement, left shoulder lateral portal site. MMODL / IJN: [id number] /
== END | disposition home or self-care (01) ==
LOC: OR 16:00
PROVIDERS: ATTEND Orthopaedic Surgery
DX: T81.42XA Infection following a procedure, deep incisional surgical site, initial encounter (principal); Z53.8 Procedure and treatment not carried out for other reasons; F32.A Depression, unspecified; Z98.891 History of uterine scar from previous surgery; Z98.890 Other specified postprocedural states; Z79.1 Long term (current) use of non-steroidal anti-inflammatories (NSAID); Z79.899 Other long term (current) drug therapy

== ENCOUNTER → 2022-02-06 | Outpatient (CLI) | payer OTHER ==
[2022-02-06 18:40] LABS: HCT 40.5 % (37.2-46.3); HGB 12.8 g/dL (12.0-15.0); MCH 31.7 pg (27.0-32.0); MCHC 31.6 g/dL (32.0-37.0); MCV 100.2 fL (80.0-97.0); Mean Platelet Volume 10.5 fL (9.5-12.2); NRBC Per 100 WBC 0 /100 WBCS (0.0-0.0); Platelet Count 255 X 10*3/uL (140-440); RBC 4.04 X 10*6/uL (4.10-5.20); RDW 14.6 % (11.5-14.5); WBC 8.76 X 10*3/uL (4.50-10.00)
[2022-02-06 20:34] LABS: Anion Gap 10.7 mmol/L (10.00-18.00); Carbon Dioxide 23.3 mmol/L (20.0-27.5); Potassium 4.7 mmol/L (3.5-5.5)
== END | disposition home or self-care (01) ==
LOC: LABPAT 10:16
PROVIDERS: ATTEND Orthopaedic Surgery
DX: M75.42 Impingement syndrome of left shoulder (principal); Z01.812 Encounter for preprocedural laboratory examination
CPT/HCPCS: 80051; 85027

== ENCOUNTER 2022-02-15 07:46 | Day surgery (SDC) | payer OTHER ==
[2022-02-14 09:43] VITALS: BMI 23.0
--- NOTE | 2022-02-14 18:20 | HP ---
HISTORY AND PHYSICAL DATE OF SURGERY: 02/15/2022 Leonor Piedra is a 41-year-old patient who had a known left shoulder rotator cuff tendon tear. We discussed repair. She was agreeable. Consent was obtained. PAST MEDICAL HISTORY: Noncontributory. SURGICAL HISTORY: Left shoulder arthroscopy. DAILY MEDICATIONS: Gabapentin, hydrocodone, ibuprofen. ALLERGIES: NONE REPORTED. SOCIAL HISTORY: She smokes cigarettes. PHYSICAL EVALUATION OF THE LEFT SHOULDER: She has evidence for previous well-healed arthroscopic portal sites. Flexion is 60 degrees, abduction is 40 degrees. External rotation is 20 degrees with weakness. Tenderness along the anterolateral acromion rotator cuff insertion site. IMPRESSION: 1. Left shoulder rotator cuff tear. 2. History of left shoulder infection. 3. History of previous left shoulder arthroscopic rotator cuff repair. PLAN: Left shoulder arthroscopic rotator cuff repair. MMJORGE A / AYSEN: [id number] /
[~2022-02-15 07:46] MED LIST changes: +DEXAMETHASONE SOD PHOSPHATE 4 MG/ML 1 ML VIAL IV ONE; +LACTATED RINGERS 1,000 ML IV SCH; +LIDOCAINE 1% (10MG/ML) FOR IV START INTRADERMA PRN; +ONDANSETRON 4 MG/2 ML VIAL IVP ONE; +SCOPOLAMINE 1 MG/72 HR PATCH TRANSDERM ONE
[2022-02-15] MEDS ORDERED: MIDAZOLAM 2 MG/2 ML VIAL IVP ONE ×2 (08:57→09:10)
[2022-02-15] MEDS ORDERED: fentaNYL (PF) 50 MCG/ML 2 ML AMP IVP ONE ×5 (09:00→09:24)
[2022-02-15] MEDS ORDERED: fentaNYL (PF) 50 MCG/ML 2 ML AMP ONE (09:30)
[2022-02-15] MEDS ORDERED: ROPIVACAINE 5 MG/ML 30 ML VIAL ONE (09:30)
[2022-02-15] MEDS ORDERED: PHENYLEPHRINE-0.9% NACL SYG 1,000 MCG/10 ML SYRINGE ONE (09:30)
[2022-02-15] MEDS ORDERED: LIDOCAINE 2% INJ 20 MG/ML (2 ML VIAL) ONE (09:30)
[2022-02-15] MEDS ORDERED: PROPOFOL 10 MG/ML 20 ML VIAL IV ONE (09:30)
[2022-02-15] MEDS ORDERED: HYDROmorphone (PF) 1 MG/ML ONE (09:30)
[2022-02-15] MEDS ORDERED: SUCCINYLCHOLINE CHLORIDE 100 MG/5 ML SYR IV ONE (09:30)
--- NOTE | 2022-02-15 09:55 | P.ANPRN ---
Procedure Note - Anesthesia - Nerve Block Performed Interscalene Single Time Out Performed: Yes (923) Date of Procedure: 02/15/22 Procedure Start Time: :24 Procedure Stop Time: : Location of Patient: PreOp Indication: Acute Post-Operative Pain, Requested by Surgeon Specifically requested for management of pain by DrNakul: Jakub Gambino Sedation Type: Sedate with meaningful contact maintained Preparation: Sterile Prep Position: Supine Catheter: None Needle Types: Pajunk Needle Gauge: 21 Ultrasound used to visualize needle placement: Yes Ultrasound used to observe medication spread: Yes Injectate: 0.5% Ropivacaine (see comment for volume) (30) Blood Aspirated: No Pain Paresthesia on Injection Noted: No Resistance on Injection: Normal Image Stored and Saved: Yes Events: Uneventful and Well Tolerated
[2022-02-15] MEDS ORDERED: VANCOMYCIN 1,000 MG VIAL MISCELLANE ONE (10:41)
--- NOTE | 2022-02-15 11:01 | P.OP ---
Date of Procedure: 02/15/22 Preoperative Diagnosis: Left shoulder rotator cuff tear Postoperative Diagnosis: Left shoulder rotator cuff tear Procedure(s) Performed: Left shoulder arthroscopic rotator cuff repair Implants: 44.75 Arthrex swivel lock anchors Anesthesia: GETA, regional (Interscalene block) Surgeon: Jakub Gambino Television Installer #1: Milton Harman Estimated Blood Loss (ml): 11 Pathology: none sent Condition: stable Disposition: PACU Indications for Procedure: 41-year-old patient seen with history of left shoulder rotator cuff tear. I recommended arthroscopic rotator cuff repair. Patient was agreeable. Consents obtained. Operative Findings: See description of procedure Description of Procedure: Patient underwent an interscalene block by department of anesthesia. The patient was then taken to the operative suite. The patient underwent a general anesthetic by the department of anesthesia. The patient was placed into a lateral position and secured. There was appropriate padding of the bony prominence. Left shoulder was then prepped and draped in normal sterile orthopedic fashion. We placed the extremity in 10 pounds of longitudinal traction. A posterior incision was now made for a posterior working portal site. The trocar and cannula were inserted into the glenohumeral joint. Arthroscopy was initiated. Spinal needle was now inserted anteriorly, to ascertain the anterior working portal site. An incision was now made in that area, a trocar was inserted followed by a probe. The labrum was probed and found to be stable. There was no significant chondromalacia present. There were no loose bodies. The biceps appeared intact. Instruments were now removed from glenohumeral joint. Utilizing the posterior working portal site, the trocar and cannula were ins erted into the subacromial space. Arthroscopy initiated. I made an incision 2 fingerbreadths lateral to the acromion. I introduced my trocar followed by my ArthroCare ablator. I now began ablating thick subacromial bursal tissue, which exposed the undersurface of the anterior acromion. There was evidence of previous decompression with adequate subacromial space. I turned my attention to the rotator cuff. There was a 3 cm rotator cuff tear. I debrided the margins getting down to stable tendon tissue. I placed 2 suture centrally 2 converging the central portion of this fairly large tear. I introduced my motorized bur and abraded the footprint area, getting some petechial bleeding. I now made an accessory portal site off the lateral aspect of the acromion. I punched 2 holes medial for medial row fixation with the assistance of Edmundo LORENZO carefully tapping the punch with a mallet as I held the punch and the camera. I now introduced both anchors into the pre-punched holes and Edmundo LORENZO tapped them with the mallet as I held anchors and the camera. Edmundo LORENZO now screwed the anchors in place a while I held the anchor guide and camera. All 8 limbs of suture were now passed through good bites of rotator cuff tendon. I now punched 2 holes for lateral row fixation again I held the punch and camera while Edmundo LORENZO used a mallet to tap in the punch. We now passed sutures through both anchors and individually I introduced the anchors into the pre- punch holes I held the anchor guide in position with one hand holding the camera with the other hand while Edmundo LORENZO tensioned the sutures and screwed in the anchors one at a time. All residual suture limbs were now clipped. We had good compression of the tendon along the entire footprint. Instruments now r emoved from the portal sites. All portal sites were approximated with nylon suture. I injected the vancomycin wash solution intra-articular and subacromial space with history of previous infection in this patient. Sterile dressings were applied followed by a shoulder immobilizer. Milton LORENZO assisted in this complex case. The patient was awakened, transferred to a bed, and taken to recovery in stable condition.
[2022-02-15 11:11] VITALS: TEMP 98
[2022-02-15 11:31] VITALS: RESP 16
[2022-02-15 12:00] VITALS: BP 136/63; PULSE 77
== END 2022-02-15 12:31 | disposition home or self-care (01) ==
LOC: OR 07:46
PROVIDERS: ATTEND Orthopaedic Surgery
DX: M75.42 Impingement syndrome of left shoulder (principal); M75.102 Unspecified rotator cuff tear or rupture of left shoulder, not specified as traumatic; Z79.1 Long term (current) use of non-steroidal anti-inflammatories (NSAID); Z79.891 Long term (current) use of opiate analgesic; Z79.899 Other long term (current) drug therapy; F17.210 Nicotine dependence, cigarettes, uncomplicated
CPT/HCPCS: 64415; 76942; 29826; 29827; C1894; C1713; J2250; J3370; J1100; J2405; J0690; J3010; J1170 ×2; J2795; J2370; J0330; J2704; J2001